=== PATIENT | female | born 2000 | race Asian ===

== ENCOUNTER 2024-07-19 23:33 | Emergency (ER) | payer SELFPAY ==
[2024-07-19 23:34] VITALS: BMI 28.3
[2024-07-20 00:11] VITALS: BP 143/99
--- NOTE | 2024-07-20 01:38 | ED.GENMED ---
History of Present Illness
General
Chief Complaint: Medication Reaction
Source: patient and family
Exam Limitations: none
Time Seen by Provider: 07/20/24 01:00
Nursing documentation reviewed up to this point in time: agreed with
History of Present Illness
History of Present Illness:
The patient is a 24-year-old female who presents with persistent symptoms following a diagnosed concussion. The concussion occurred after a fall where she hit her head while picking up items in the kitchen, specifically from a cabinet. Since the
event, the patient has experienced mood disturbances and sleep difficulties. She reports feeling 'on edge' and struggles with mood swings. The patient has been on amitriptyline for post-concussion symptoms and mood stabilization, prescribed by her
physician, although she feels the current low dosage is ineffective. She has tried melatonin and relaxation techniques without significant improvement. Last night, she may have inadvertently taken an extra dose of her medication. She denies any
thoughts of self-harm or harm to others but reports restlessness and difficulty sleeping, describing 'turning in bed' and feeling physically 'on edge.' The patient occasionally uses [id number] sleeping aids such as Excedrin PM, primarily for
sleep and headaches related to post-concussion syndrome. She denies chest pain, shortness of breath, or fever.
Review of Systems
Review of Systems
Allergies reviewed?: Yes
All Other Systems: ROS reviewed and negative except as documented in HPI and ROS
Phy Exam
Physical Exam
Physical Exam:
GENERAL: Alert , in no apparent distress
EYE: pupils equal and reactive
NECK: Supple, no significant adenopathy.
ENT: o/p clr, mmm.
CARDIAC: Regular rate and rhythm .
LUNGS: Clear breath sounds bilaterally, no acute respiratory distress, no wheezes/rales/rhonchi
ABDOMEN: Soft, without focal tenderness, no r/g, no cvat
NEUROLOGICAL: Alert and oriented, no focal neuro deficits
SKIN: Warm and dry, skin intact.
MUSCULOSKELETAL: No edema, well perfused.
PSYCH: Normal and appropriate interaction.
Course
Orders/Labs/Results
Orders:
Orders
07/20/24 01:34
Diphenhydramine [Benadryl] 50 mg PO NOW STA
Metoclopramide [Reglan] 10 mg PO NOW STA
07/20/24 01:35
Test Result ONCE
07/20/24 01:52
BMP [Basic Metabolic Panel] Urgent
Beta Hcg Serum Qualitative Screen [HCG, Serum Qualitative Screen] Urgent
CBC/With Diff [Complete Blood Count/With Diff] Urgent
TSH Reflex To Free T4 Urgent
Abnormal Lab Results
07/20/24
01:52
RBC 5.57 H 10^6/uL
(4.20-5.40)
MCV 72.5 L fL
(81.0-99.0)
MCH 23.3 L pg
(27.0-31.0)
MCHC 32.2 L g/dL
(33.0-37.0)
Absolute Monos (auto) 0.7 H 10^3/uL
(0.1-0.6)
Chloride 108 H mmol/L
(98-107)
Glucose 111 H mg/dl
(70-99)
07/20/24 01:52
07/20/24 01:52
Vital Signs
Initial and Last Documented VS:
Initial Vital Signs
Temp Pulse Resp BP Pulse Ox
98.2 F 96 16 143/99 100
07/20/24 00:11 07/20/24 00:11 07/20/24 00:11 07/20/24 00:11 07/20/24 00:11
Last Documented Vital Signs
Temp Pulse Resp BP Pulse Ox
98.2 F 96 16 143/99 100
07/20/24 00:11 07/20/24 00:11 07/20/24 00:11 07/20/24 00:11 07/20/24 02:04
MDM/Problems Addressed
MDM/Problems Addressed:
- Administer Reglan to address headache symptoms.
- Order basic laboratory tests to rule out any other medical conditions contributing to the patients symptoms, including thyroid function tests.
- Consider referral to crisis intervention for further evaluation of mood and sleep disturbances.
- Offer options for sleep management that could include medications like Trazodone, if deemed appropriate by specialists.
- Discuss non-pharmacological recommendations for sleep hygiene.
- Monitor the patients response to interventions and adjust the plan as necessary.
*Critical Care Note
Total Time (30-74mins, 75-104mins- exclusive of procedures): Not Applicable
Update Note
Update Note:
Patient claims that the Reglan and Benadryl seem to help symptoms. Plan for close outpatient follow-up return precautions given.
ED Attending Note
-
Portions of this chart may have been created with voice recognition software.� Occasional wrong word or��sound alike� substitutions may have occurred due to the inherent limitations of voice recognition software.
Discharge Plan
Departure
Patient Disposition: Home (Routine Discharge)
Date of Disposition: 07/20/24
Time of Disposition: 02:35
Patient with high blood pressure during this ER visit?: No
Condition: Good
Covid-19: Not Applicable
Discharge Problem:
Post concussive syndrome, Insomnia
Prescriptions:
New
metoclopramide HCl [Reglan] 10 mg tablet
10 mg PO Q6H PRN (Reason: nausea and vomiting) Qty: 7 0RF
diphenhydramine HCl 25 mg capsule
25 mg PO TID PRN (Reason: Sleep) Qty: 7 0RF
Referrals:
[facility] [Provider Group]
Charlette Cesar DO [Family Provider]
Activity Restrictions/Additional Instructions:
You came to the emergency department today with concerns of ongoing symptoms after concussion as well as insomnia. Please take the prescribed medication as needed for headache. Please otherwise follow-up closely with the clinic for further
management this week. Return for any worsening, new or concerning symptoms.
Interventions
Interventions:
*Risk Screen - Suicide Last Done: 07/20/24 01:51
*General Assessment Last Done: 07/20/24 00:11
*Neglect/Abuse Screening Last Done: 07/20/24 01:51
*ED- Fall Risk Assessment Last Done: 07/20/24 01:44
*ED COVID-19 Vaccine History Last Done: 07/20/24 01:44
ED-Skin Assessment Last Done: 07/20/24 02:04
ED- Pulmonary Assessment Last Done: 07/20/24 02:04
ED-EENT Assessment Last Done: 07/20/24 02:04
Discharge Date and Time
Print Language: LIBYAN
[2024-07-20] MEDS: REGLAN 10 MG PO (01:59)
[2024-07-20] MEDS: BENADRYL 50 MG PO (01:59)
[2024-07-20 02:04] LABS: % Basophils 0.9 % (0-2); % Eosinophils 2.9 % (0-6); % Immature Granulocytes 0.2 % (0-0.5); % Lymphocytes 22.5 % (20.5-51.1); % Neutrophils 64.5 % (42.2-75.2); Absolute Basophils 0.1 10^3/uL (0-0.2); Absolute Eosinophils 0.2 10^3/uL (0-0.7); Absolute Lymphocytes 1.9 10^3/uL (1.2-3.4); Absolute Monocytes 0.7 10^3/uL (0.1-0.6); Absolute Neutrophils 5.3 10^3/uL (1.4-6.5); Hematocrit 40.4 % (37.0-47.0); Mean Corp Hgb Conc. 32.2 g/dL (33.0-37.0); Mean Corpuscular Hgb 23.3 pg (27.0-31.0); Mean Corpuscular Volume 72.5 fL (81.0-99.0); Mean Platelet Volume 10.1 fL (7.4-10.4); Nucleated Red Blood Cells % 0 %; Platelet Count 251 10^3/uL (130-400); Red Blood Cell Count 5.57 10^6/uL (4.20-5.40); Red Cell Dist. Width 14.5 % (11.5-14.5); White Blood Cell Count 8.2 10^3/uL (4.8-10.8)
[2024-07-20 02:16] LABS: HCG, Serum Qualitative Screen Negative
[2024-07-20 02:19] LABS: Blood Urea Nitrogen 14 mg/dl (7-17); Calcium 9.5 mg/dl (8.4-10.2); Carbon Dioxide 24 mmol/L (22-30); Chloride 108 mmol/L (98-107); Estimated Creatinine Clearance > 125 ml/min; Glucose 111 mg/dl (70-99); Potassium 4.1 mmol/L (3.5-5.1); Sodium 141 mmol/L (135-145); eGFR > 60.00
[2024-07-20 02:48] LABS: TSH Reflex To Free T4 1.81 uIU/ml (0.47-4.68)
== END 2024-07-20 02:55 | disposition home or self-care (01) ==
LOC: EMR 23:33
PROVIDERS: Physician Assistant; EMERGENCY PHYSICIAN Student in an Organized Health Care Education/Training Program; FAMILY PHYSICIAN Family Medicine
DX: G47.00 Insomnia, unspecified (principal); F07.81 Postconcussional syndrome
CPT/HCPCS: 99283; 80048; 84443; 84703; 85025

== ENCOUNTER 2024-07-30 11:32 | Emergency (ER) | payer BC, SELFPAY ==
[2024-07-30 11:38] VITALS: BP 157/103
[2024-07-30 12:04] LABS: Urine Albumin Negative (Neg - Trace); Urine Bilirubin Negative (Negative); Urine Character Clear (Clear); Urine Color Yellow; Urine Glucose Negative (Negative); Urine Ketone Negative (Negative); Urine Leukocyte 1+ (Negative); Urine Nitrite Negative (Negative); Urine Occult Blood Negative (Negative); Urine Specific Gravity 1.015 (<1.030); Urine Urobilinogen Negative (Neg - 1+)
[2024-07-30 12:07] LABS: % Basophils 0.9 % (0-2); % Eosinophils 2.7 % (0-6); % Immature Granulocytes 0.5 % (0-0.5); % Lymphocytes 32.6 % (20.5-51.1); % Monocytes 8.5 % (1.7-9.3); % Neutrophils 54.8 % (42.2-75.2); Absolute Basophils 0.1 10^3/uL (0-0.2); Absolute Eosinophils 0.2 10^3/uL (0-0.7); Absolute Lymphocytes 2.7 10^3/uL (1.2-3.4); Absolute Monocytes 0.7 10^3/uL (0.1-0.6); Absolute Neutrophils 4.5 10^3/uL (1.4-6.5); Hematocrit 41.6 % (37.0-47.0); Hemoglobin 13.4 g/dL (12.0-16.0); Mean Corp Hgb Conc. 32.2 g/dL (33.0-37.0); Mean Corpuscular Hgb 23.4 pg (27.0-31.0); Mean Corpuscular Volume 72.6 fL (81.0-99.0); Mean Platelet Volume 9.8 fL (7.4-10.4); Nucleated Red Blood Cells % 0 %; Platelet Count 289 10^3/uL (130-400); Red Blood Cell Count 5.73 10^6/uL (4.20-5.40); Red Cell Dist. Width 14.6 % (11.5-14.5); White Blood Cell Count 8.1 10^3/uL (4.8-10.8)
[2024-07-30 12:22] LABS: Urine Red Blood Cell 0-2 /HPF (0-2); Urine Squamous Cell >30 /LPF (Few)
[2024-07-30 12:23] LABS: Urine Bacteria Few (Negative); Urine White Cell 0-2 /HPF (0-5)
[2024-07-30 12:37] LABS: Troponin I < 0.012 ng/ml
[2024-07-30 12:57] LABS: HCG, Serum Qualitative Screen Negative
[2024-07-30 13:02] LABS: ALT (SGPT) 24 U/L (0-35); AST (SGOT) 22 U/L (14-36); Albumin 4.8 g/dl (3.5-5.0); Alkaline Phosphatase 56 U/L (38-126); Blood Urea Nitrogen 15 mg/dl (7-17); Calcium 9.9 mg/dl (8.4-10.2); Carbon Dioxide 25 mmol/L (22-30); Chloride 106 mmol/L (98-107); Glucose 86 mg/dl (70-99); Potassium 4.5 mmol/L (3.5-5.1); Sodium 139 mmol/L (135-145); Total Bilirubin 0.3 mg/dl (0.2-1.3); Total Protein 8.1 g/dl (6.3-8.2); eGFR > 60.00
[2024-07-30 13:42] VITALS: BP 127/110
[2024-07-30 15:55] VITALS: BP 131/93
[2024-07-30] MEDS: TORADOL 15 MG IV (17:18)
[2024-07-30] MEDS: NSS 1000 IV (17:18)
[2024-07-30 17:25] VITALS: BP 124/85; BMI 28.9
--- NOTE | 2024-07-30 17:31 | ED.GENMED ---
History of Present Illness
General
Chief Complaint: Heart Rate Problem
Source: patient and family
Exam Limitations: none
Time Seen by Provider: 07/30/24 16:37
Nursing documentation reviewed up to this point in time: agreed with
History of Present Illness
History of Present Illness:
TIME OF INITIAL EVALUATION
-15:58
CHIEF COMPLAINT(S)
Palpitations and shortness of breath.
HISTORY OF PRESENT ILLNESS
The patient is a 24-year-old female with history bipolar disorder who presents with complaints of palpitations and shortness of breath. She has noticed symptoms intermittently over the past few days although worse yesterday. Of note- she did
recently start abilify and then had an increase in dose from 5mg to 10mg. Since initiating abilify she has been experiencing multipel symptoms including waking up 'in a panic,' feeling her heart racing with unusual sweating, and experiencing
heightened insomnia.
She denies chest pain but notes sustained feelings of restlessness and anxiety.
However - she does believe that abilify has been stabalizing her mood.
Vital signs when measured at home sometimes showed a blood pressure of 155/94 mmHg and a heart rate between around 130.
She also reports chronic headache as she is being treated outpatient for post-concussive syndrome
PAST MEDICAL HISTORY
- Bipolar disorder
Review of Systems
Review of Systems
Allergies reviewed?: Yes
All Other Systems: ROS reviewed and negative except as documented in HPI and ROS
Phy Exam
Physical Exam
Physical Exam:
-- Vitals: Hypertensive, otherwise vital signs stable. Afebrile
- General: Well appearing in no distress
- HEENT: Moist oral mucosa
- Cardiovascular: No murmurs, normal heart rate, regular rhythm, No chest wall tenderness
- Pulmonary: No respiratory distress, breath sounds are clear and equal
- Abdomen: Soft with no peritoneal signs, no tenderness
- Neurologic: Excellent strength all extremities, no coordination deficits
- Psychiatric: Appropriate mental status, normal insight and judgement. Somewhat anxious
- Extremities: Nontender, no edema, moves all extremities equally
- Skin: No rash, no lesions
Course
Orders/Labs/Results
Orders:
Orders
07/30/24 11:33
Electrocardiogram (*1) Urgent
Reason for Study: Palpitations
07/30/24 11:34
EKG- Treatment ONCE
07/30/24 11:44
Test Result ONCE
07/30/24 11:50
UA Reflex to Culture [Urinalysis Reflex To Culture] Urgent
Date Specimen was Collected: 07/30/24
Time Specimen was Collected: 11:45
Urine Microscopic Reflex Cult Urgent
Urine Culture Urgent
[place] Source: U
Specimen Description:
Date Specimen was Collected: 07/30/24
Time Specimen was Collected: 11:45
07/30/24 11:54
Complete Blood Count/With Diff Urgent
Comprehensive Metabolic Panel Urgent
HCG, Serum Qualitative Screen Urgent
Comment: Notify provider if positive test present
TSH Reflex To Free T4 Urgent
Comment: ADD ON
Troponin I Urgent
07/30/24 16:59
0.9% Sodium Chloride 1000 ml [Nss] 1,000 ml IV BOLUS
Ketorolac [Toradol] 15 mg IV NOW STA
07/30/24 17:00
Add On- LAB Urgent
Tests Added?: TSH w/ reflex to T4
Cardiac Monitoring- Treatment ONCE
07/30/24 17:12
D-Dimer Urgent
07/30/24 17:54
CR Chest - 2 Views Urgent
Comment:
Reason For Exam: SOB, palpitations
07/30/24 19:25
Diphenhydramine [Benadryl] 50 mg PO NOW STA
Metoclopramide [Reglan] 10 mg PO NOW STA
Abnormal Lab Results
07/30/24 07/30/24
11:50 11:54
RBC 5.73 H 10^6/uL
(4.20-5.40)
MCV 72.6 L fL
(81.0-99.0)
MCH 23.4 L pg
(27.0-31.0)
MCHC 32.2 L g/dL
(33.0-37.0)
RDW 14.6 H %
(11.5-14.5)
Absolute Monos (auto) 0.7 H 10^3/uL
(0.1-0.6)
Creatinine 0.5 L mg/dL
(0.6-1.0)
Leukocyte Esterase Rfl 1+ A
(Negative)
Urine Bacteria (Reflex) Few A
(Negative)
07/30/24 11:54
07/30/24 11:54
Vital Signs
Initial and Last Documented VS:
Initial Vital Signs
Temp Pulse Resp BP Pulse Ox
98.2 F 93 16 157/103 99
07/30/24 11:38 07/30/24 11:38 07/30/24 11:38 07/30/24 11:38 07/30/24 11:38
Last Documented Vital Signs
Temp Pulse Resp BP Pulse Ox
98.2 F 87 16 116/82 100
07/30/24 11:38 07/30/24 18:07 07/30/24 18:07 07/30/24 18:07 07/30/24 18:07
MDM/Problems Addressed
Differential Diagnosis Includes:
- Drug-induced side effects
- Anxiety disorder
- Hyperthyroidism
- Supraventricular tachycardia
- Pulmonary embolism
- Pheochromocytoma
- Generalized anxiety disorder with panic attacks
- Hypertensive crisis
- Insomnia-related autonomic dysfunction
MDM/Problems Addressed:
24-year-old female presenting to the emergency department with multiple complaints today, including a chronic headache from suspected postconcussive syndrome, palpitations, shortness of breath, and insomnia. No associated fevers or chest pain. She
did recently increase her dose of an already new medicine, Abilify. However, she does report noticing significant improvement in her mood. Patient hypertensive on arrival with otherwise stable vital signs. Physical exam as above. Differential broad.
Will rule out acute cardio/pulmonary emergency and other metabolic abnormalities. However - symptoms may be secondary to medication side effects from abilify. ED plan: basic labs, troponin, d-dimer, TSH. Check CXR. Treat headache and monitor on
personnel monitor.
Update: Labs reviewed. CBC and chemistry without acute abnormalities. Troponin and d-dimer undetectable. CXR without acute findings. Workup in ED essentially negative. Very low suspicion for acute cardio/pulmonary emergency process. Symptoms
possibly secondary to side effects from abilify. Given stabalization of mood - would not want to make any current medicaton adjustments at this time and rather recommend very close outpatient f/u with PCP and psychiatry. Advised benadryl HS PRN
sleep. Feel stable for discharge home. Strict return precautions discussed including any signs of severe side effects.
Chronic conditions affecting care:
Bipolar disorder, postconcussive syndrome
Acute Exacerbation and/or Progression of Chronic Illness:
N/A
*Radiology
Radiology exam reviewed: radiology read reviewed
*Pulse Oximetry
SaO2: 99
Oxygen Mode of Delivery: Room air
Patient hypoxic: no
*EKG
Interpreted by ED Provider?: Yes
EKG Intrepretation Date: 07/30/24
Interpretation: abnormal
Comparison EKG: no comparison EKG present
Heart Rate: 84
Rate: normal
Rhythm: sinus
[place]: normal axis
Interval: normal QT interval
QRS Pattern: right bundle branch block
Ischemia: non-specific ST changes
*[employer] Interpretation
Rate: normal
Interpretation: normal
Heart Rate: 80
Rhythm: sinus
*Critical Care Note
Total Time (30-74mins, 75-104mins- exclusive of procedures): Not Applicable
Patient Management
Escalation/DeEscalation of care consider admission/obs:
Admit not indicated
ED Attending Note
-
Portions of this chart may have been created with voice recognition software.� Occasional wrong word or��sound alike� substitutions may have occurred due to the inherent limitations of voice recognition software.
Discharge Plan
Departure
Patient Disposition: Home (Routine Discharge)
Date of Disposition: 07/30/24
Time of Disposition: 19:25
Patient with high blood pressure during this ER visit?: Yes
Condition: Good
Discharge Problem:
Medication side effect, Headache
Instructions: Headache, Adult (DC), Palpitations (DC), BLOOD PRESSURE
Prescriptions:
No Action
metoclopramide HCl [Reglan] 10 mg tablet
10 mg PO Q6H PRN (Reason: nausea and vomiting) Qty: 7 0RF
diphenhydramine HCl 25 mg capsule
25 mg PO TID PRN (Reason: Sleep) Qty: 7 0RF
Referrals:
Sage Joseph MD, Resident [Family Provider, General] - Follow up in 2-3 days
Stand Alone Forms: Return to Work
Activity Restrictions/Additional Instructions:
RETURN TO THE EMERGENCY DEPARTMENT ANY FEVER, SEVERE HEADACHE/NECK PAIN, CHEST PAIN OR SHORTNESS OF BREATH, SIGNIFICANT CHANGES IN MOOD, THOUGHTS OF HARMING YOURSELF OR OTHERS, OR ANY OTHER CONCERNS
- As discussed�your lab work and chest x-ray showed no acute abnormalities. I suspect that some degree of your insomnia/restlessness is secondary to your
- Abilify. However�I do recommend you continue taking this medication as it seems to be improving your mood and stabilize your symptoms. Please follow closely with your primary care/psychiatrist for further management of your bipolar disorder and
discussing possible medication adjustments as needed
- Stay well-hydrated. You can take Tylenol and/or Motrin as needed for pain.
Monitor your symptoms closely and return to the emergency department with any acute worsening/new symptoms or any other concerns
Interventions
Interventions:
*Risk Screen - Suicide Last Done: 07/30/24 11:38
*Neglect/Abuse Screening Last Done: 07/30/24 11:38
*Nursing Disposition Last Done: 07/30/24 20:00
ED- Pulmonary Assessment Last Done: 07/30/24 15:55
ED- Neurological Assessment Last Done: 07/30/24 15:55
ED- Cardiac Assessment Last Done: 07/30/24 15:55
Discharge Date and Time
Discharge Date/Time: 07/30/24 20:01
Print Language: ALBANIAN
[2024-07-30 17:45] LABS: D-Dimer < 0.27 ug/mlFEU (0.00-0.50)
[2024-07-30 18:07] VITALS: BP 116/82
[2024-07-30 18:31] LABS: TSH Reflex To Free T4 1.75 uIU/ml (0.47-4.68)
[2024-07-30] MEDS: BENADRYL 50 MG PO (19:46)
[2024-07-30] MEDS: REGLAN 10 MG PO (19:46)
== END 2024-07-30 20:01 | disposition home or self-care (01) ==
LOC: EMR 11:32
PROVIDERS: Physician Assistant; EMERGENCY PHYSICIAN Emergency Medicine
DX: R06.02 Shortness of breath (principal); R00.2 Palpitations; T43.595A Adverse effect of other antipsychotics and neuroleptics, initial encounter; R51.9 Headache, unspecified; F31.9 Bipolar disorder, unspecified; G47.00 Insomnia, unspecified
CPT/HCPCS: 99285; 96374; 96361; 71046; 80053; 81003; 81015; 84443; 84484; 84703; 85025; 85379; 87086; 93005